=== PATIENT | female | born 1965 | race Caucasian/White ===

== ENCOUNTER 2016-12-01 09:49 | Emergency (ER) | payer OTHER ==
--- NOTE | ~2016-12-01 | CR126 ---
[facility] A Service of [facility] RADIOLOGY TEXT RESULTS PATIENT: JJ SPENCER LOCATION: SED : 67 UNIT #: [id number] AGE: [address]: Tai Saunders MD SEX: F ORDER DR: [id number] [place] [id number] E MR#: [id number] #: [id number] NAME: JJ SPENCER : 1965 SEX: F STUDY DATE/TIME: 12/01/2016 10:32 UNIT: SED ROOM: STUDY DESCRIPTION: CR Foot Complete Min 3 View Lt Attending Physician: Tai Saunders M.D. Ordering Physician: Tai Saunders M.D. [facility] REPORT This report is preliminary unless electronic signature is present. EXAM Left foot, 3 views, 12/01/2016. 10:32 a.m. COMPARISON Left foot radiograph, 01/03/2014. HISTORY History sheets states trauma/pain since yesterday. Stubbed toes on a dog gate. Injury, left 4th or 5th toes with bruising. FINDINGS There is a nondisplaced fracture at the proximal aspect of the proximal phalanx of the 5th toe without definitive articular involvement. The dominant fracture line is transversely oriented. The remainder of the foot, including the 4th toe, are unremarkable. There is no radiopaque foreign body. No subluxation or dislocation. Midfoot alignment is normal. IMPRESSION 1. Nondisplaced fracture of the base of the proximal phalanx of the 5th toe without definite articular involvement. 2. No dislocation, subluxation, or additional fracture is seen. The 4th toe is unremarkable. Dictated by... Afshan Dc M.D. THIS IS AN ELECTRONICALLY VERIFIED REPORT Afshan Dc M.D. at 12/01/2016 2:12 PM [facility] A Service of [facility] RADIOLOGY TEXT RESULTS PATIENT: JJ SPENCER LOCATION: SED : 67 UNIT #: [id number] AGE: [address]: Tai Saunders MD SEX: F ORDER DR: JENIFER/pati TD: 12/01/2016 11:29 JOB #: [id number] MEDICAL IMAGING REPORT Page 1 of 1
[~2016-12-01 09:49] MED LIST: ANTIVERT PO; APRESOLINE10 M1 PO; AUGMENTIN PO; BACTRIM DS TABL1 TA1 PO; CLARITIN D PO; CYMBALTA20 MG PO; CYMBALTA30 MG PO; ELIMITE60 G1; FLAGYL PO; LORATADINE10 M1 PO; MEDROL DOSEPAK4 MG; MOBIC PO; PAXIL PO; PREDNISONE PO; PROZAC; SUDAFED30 M1 PO; SYNTHROID; SYNTHROID PO; TESSALON200 MG PO; VICODIN 5/500 T1 TAB PO; [UNRECOGNIZED DRUG - OTHER]
== END 2016-12-01 11:22 | disposition home or self-care (01) ==
LOC: SED 09:49
DX: S92.515A Nondisplaced fracture of proximal phalanx of left lesser toe(s), initial encounter for closed fracture (principal); J32.9 Chronic sinusitis, unspecified; H81.10 Benign paroxysmal vertigo, unspecified ear; E03.9 Hypothyroidism, unspecified; F32.9 Major depressive disorder, single episode, unspecified; W22.8XXA Striking against or struck by other objects, initial encounter; Y92.9 Unspecified place or not applicable
CPT/HCPCS: 29515; 73630; 99283